=== PATIENT | female | born 1945 | race Caucasian/White ===

== ENCOUNTER → 2016-07-18 | Outpatient (CLI) | payer MEDICARE ==
[~2016-07-18] MED LIST: CARDIZEM CD180 MG PO; CYMBALTA DPS60 MG PO; DITROPAN-DPS5 MG PO; ELIQUIS5 MG PO; LASIX DPS40 MG PO; LASIX DPS80 MG PO; LEVOTHYROXINE75 MCG PO; LOTENSIN DPS20 MG PO; MIRALAX PACKET17 GM PO; MYLICON DPS80 MG PO; PRAVASTATIN SOD40 MG PO; SURFAK DPS240 MG PO; TYLENOL DPS325 MG PO
== END | disposition home or self-care (01) ==
LOC: PTH.S 07-13 12:45
DX: R19.7 Diarrhea, unspecified (principal)